=== PATIENT | female | born 1995 | race Two or more races ===

== ENCOUNTER 2016-12-20 11:08 | Emergency (ER) | payer OTHER ==
--- NOTE | 2016-12-20 11:21 | PDOC ---
History of Present Illness - General Stated Complaint: ABDOMINAL PAIN Time Seen by Provider: 12/20/16 11:19 - History of Present Illness Initial Comments: 12/20/16 11:48 Chief complaint: Menstrual cramps History of present illness: Patient had severe menstrual cramps with the onset of her period this morning. She has had similar pain in the past for which she uses ibuprofen. However, she had no ibuprofen at the time. There is nothing unusual about these pains for her. As noted, they are similar to those experienced in the past. No vaginal discharge. Not sexually active. No hormones or contraceptives. No history of STD, ovarian cyst, or other pelvic or gynecological disease. Review of systems: As above. In addition, there is been no fever, URI symptoms, sore throat, cough, chest pain, shortness of breath, nausea, vomiting, diarrhea. Past medical history: Severe menstrual cramps. Otherwise no serious medical or surgical illnesses past or present Social/family history: Patient is a student at [employer], denies tobacco alcohol or street drugs. Fully active and without disability. Physical exam: Alert and oriented 3, well-developed well-nourished, no acute distress, cheerful and cooperative. Pain has now subsided HEENT clear Neck supple without bruit mass or nodes Chest clear CV regular without murmur or gallop Abdomen nondistended. Bowel sounds normal. Soft without masses tenderness organomegaly Extremities no CCE Skin clear, no rash, adequate turgor and what mucous membranes Impression: Patient is in absolutely no distress or pain right now, smiling, cheerful, and pleasant. She requests refill or ibuprofen Plan: UA and test. If normal, refill ibuprofen and follow-up [employer] as needed. Past History - Past Medical History Allergies/Adverse Reactions: Allergies Allergy/AdvReac Type Severity Reaction Status Date / Time No Known Allergies Allergy Verified 12/20/16 11:31 Home Medications: Ambulatory Orders Ibuprofen 600 mg PO TID PRN #20 tablet 12/20/16 Medical Decision Making - Medical Decision Making 12/20/16 12:05 Patient remains comfortable. Urinalysis and test negative Improved with ibuprofen. Discharged in the company of a friend, fully ambulatory and in no pain or other distress to follow-up as needed. *DC/Admit/Observation/Transfer Diagnosis at time of Disposition: Dysmenorrhea - Discharge Dispostion Disposition: HOME Condition at time of disposition: Improved Admit: No - Prescriptions Prescriptions: Ibuprofen 600 mg PO TID PRN #20 tablet PRN Reason: Pain - Referrals Referrals: Juni Blakely MD [Staff Physician] - - Patient Instructions Printed Discharge Instructions: DI for Dysmenorrhea - Post Discharge Activity Work/School Note: Back to School
[2016-12-20] MEDS ORDERED: IBUPROFEN 600 MG TABLET (FP) PO ONE ×2 (11:48→11:57)
[2016-12-20 11:54] LABS: PH,URINE >= 9.0 (4.5-8); URINE APPEARANCE Clear; URINE BILIRUBIN Negative (NEGATIVE); URINE GLUCOSE (UA) Negative (NEGATIVE); URINE KETONE Negative (NEGATIVE); URINE LEUK ESTERASE Negative (NEGATIVE); URINE NITRITE Negative (NEGATIVE); URINE UROBILINOGEN 0.2 E.U/dl (0.2-1.0)
[2016-12-20 11:57] LABS: URINE BLOOD 2+ (NEGATIVE); URINE COLOR YELLOW; URINE PROTEIN 1+ (NEGATIVE)
[2016-12-20 11:59] VITALS: BP 111/64; PULSE 63; TEMP 97.9; BMI 20.1
[2016-12-20 12:11] LABS: URINE BACTERIA FEW /hpf (NEGATIVE)
== END 2016-12-20 12:10 | disposition home or self-care (01) ==
LOC: FER 11:08
DX: N94.6 Dysmenorrhea, unspecified (principal)
CPT/HCPCS: 81003; 81015; 84703; 99282-25